=== PATIENT | male | born 1970 | race Two or more races ===

== ENCOUNTER 2020-05-24 21:13 | Emergency (ER) | payer OTHER ==
[~2020-05-24] VITALS: Ht 172.7 cm; Wt 76.7 kg
== END 2020-05-24 23:36 | disposition home or self-care (01) ==
LOC: ER 21:13
DX: S01.82XA Laceration with foreign body of other part of head, initial encounter (principal); W45.8XXA Other foreign body or object entering through skin, initial encounter; Y93.89 Activity, other specified; Y92.814 Boat as the place of occurrence of the external cause; Y99.8 Other external cause status